=== PATIENT | male | born 2000 | race Hispanic/Latino ===

== ENCOUNTER 2021-03-26 22:01 | Emergency (ER) | payer SELFPAY ==
[~2021-03-26] VITALS: Ht 175.3 cm; Wt 65.8 kg
[2021-03-26 23:00] VITALS: BP 131/66
== END 2021-03-26 23:04 | disposition home or self-care (01) ==
LOC: ER 22:05
DX: U07.1 COVID-19 (principal); R06.02 Shortness of breath
CPT/HCPCS: 71045; 99282; U0002

== ENCOUNTER → 2021-06-18 | Emergency (ER) | payer OTHER ==
[~2021-06-18] VITALS: Ht 175.3 cm; Wt 63.5 kg
== END | disposition left against medical advice (07) ==
LOC: FSED 18:00
DX: R07.89 Other chest pain (principal)

== ENCOUNTER 2024-04-03 22:06 | Emergency (ER) | payer SELFPAY ==
[~2024-04-03] VITALS: Ht 175.3 cm; Wt 67.1 kg
[2024-04-03 22:26] VITALS: PULSE 99; RESP 18; TEMP 98.5
[2024-04-03] MEDS ORDERED: BENZONATATE100 MG PO (22:50)
[2024-04-03 22:54] VITALS: BP 128/78; PULSE 98; RESP 18; TEMP 98.5; O2SAT 98
== END 2024-04-03 22:54 | disposition home or self-care (01) ==
LOC: FSED 22:47
DX: R05.9 Cough, unspecified (principal); R07.89 Other chest pain; F41.9 Anxiety disorder, unspecified
CPT/HCPCS: 93005; 99282